=== PATIENT | male | born 1990 | race Caucasian/White ===

== ENCOUNTER 2017-05-17 10:47 | Emergency (ER) | payer BC ==
[~2017-05-17] VITALS: Ht 182.9 cm; Wt 89.4 kg
[2017-05-17 11:16] VITALS: BP 132/75
== END 2017-05-17 12:39 | disposition home or self-care (01) ==
LOC: ED 10:47
DX: M25.571 Pain in right ankle and joints of right foot (principal)

== ENCOUNTER 2018-05-29 03:27 | Emergency (ER) | payer BC ==
[2018-05-29 03:37] VITALS: Ht 182.9 cm
[2018-05-29 04:32] LABS: BASOPHIL % 0.7 % (0-2); PLATELET COUNT 220 x10^3mcL (130-400); RED CELL DISTRIBUTION WIDTH 12.4 % (11.5-14.5)
[2018-05-29 04:41] LABS: CALCIUM 8.8 mg/dL (8.5-10.1); CARBON DIOXIDE 25.4 mmol/L (21-32); CHLORIDE SERUM 108 mmol/L (98-107); CREATININE SERUM 1.1 mg/dL (0.7-1.3); GFR1 > 60 mL/min; GLUCOSE SERUM 115 mg/dL (74-106); POTASSIUM SERUM 3.7 mmol/L (3.5-5.1); SODIUM SERUM 142 mmol/L (136-145)
[2018-05-29 04:45] LABS: ALBUMIN 3.9 g/dL (3.4-5.0); ALKALINE PHOSPHATASE 148 U/L (46-116); ALT/SGPT 85 U/L (16-63); AST/SGOT 106 U/L (15-37); BILIRUBIN TOTAL 1.18 mg/dL (0.20-1.00); LIPASE 155 IU/L (73-393); TOTAL PROTEIN, SERUM 7.4 g/dL (6.4-8.2)
[2018-05-29 06:58] VITALS: BP 120/74
== END 2018-05-29 06:59 | disposition home or self-care (01) ==
LOC: ED 03:27
PROVIDERS: Emergency Medicine
DX: R19.7 Diarrhea, unspecified (principal)
CPT/HCPCS: 36415; J0500; J3490; J7030; Q0092